=== PATIENT | female | born 1975 | race Caucasian/White ===

== ENCOUNTER 2016-12-02 17:59 | Emergency (ER) | payer SELFPAY ==
[~2016-12-02] VITALS: Ht 160 cm; Wt 66.2 kg
[2016-12-02] MEDS ORDERED: ADENOSINE 6 MG/2 ML ONE (18:15)
[2016-12-02] MEDS ORDERED: ADENOSINE 6 MG/2 ML IVPush ONE (18:30)
[2016-12-02] MEDS ORDERED: SODIUM CHLORIDE FLUSH 10ML SYR IVF ONE (18:30)
[2016-12-02 18:49] LABS: ASPARTATE AMINO TRANSFERASE 24 U/L (15-37); BLOOD UREA NITROGEN 13 mg/dL (7-18)
[2016-12-02 18:54] LABS: IS PT STATUS REG ER OR PRE ER? YES
[2016-12-02 19:21] VITALS: BP 116/67
== END 2016-12-02 19:44 | disposition home or self-care (01) ==
LOC: ED 19:38
DX: I49.9 Cardiac arrhythmia, unspecified (principal); N18.9 Chronic kidney disease, unspecified
CPT/HCPCS: 36415; 80053; 83735; 83880; 84443; 84484; 85025; 85610; 93005; 96374; 99285; J0153

== ENCOUNTER 2019-07-23 19:15 | Emergency (ER) | payer BC, OTHER ==
[~2019-07-23] VITALS: Ht 157.5 cm; Wt 73.6 kg
[2019-07-23 19:23] VITALS: BP 118/75
[2019-07-23] MEDS ORDERED: KETOROLAC 30 MG/1 ML ONE (20:25)
[2019-07-23] MEDS ORDERED: KETOROLAC 30 MG/1 ML IM ONE (20:30)
== END 2019-07-23 20:21 | disposition home or self-care (01) ==
LOC: ED 20:10
DX: S29.012A Strain of muscle and tendon of back wall of thorax, initial encounter (principal); V59.49XA Driver of pick-up truck or van injured in collision with other motor vehicles in traffic accident, initial encounter; Y93.89 Activity, other specified; Y92.410 Unspecified street and highway as the place of occurrence of the external cause; Y99.8 Other external cause status
CPT/HCPCS: 72072; 96372; 99283; J1885